=== PATIENT | male | born 1995 | race American Indian/Alaskan Native ===

== ENCOUNTER 2022-01-19 17:18 | Emergency (ER) | payer OTHER ==
[~2022-01-19] VITALS: Ht 177.8 cm; Wt 87.7 kg
[2022-01-19 17:24] VITALS: TEMP 98.2
[2022-01-19] MEDS ORDERED: CEPHALEXIN500 M1 PO (18:56)
[2022-01-19 19:24] VITALS: BP 132/94; PULSE 51
== END 2022-01-19 19:25 | disposition home or self-care (01) ==
LOC: COL.ER 17:18
DX: S61.341A Puncture wound with foreign body of left index finger with damage to nail, initial encounter (principal); Z28.310 Unvaccinated for COVID-19; W45.0XXA Nail entering through skin, initial encounter